=== PATIENT | male | born 1935 | race American Indian/Alaskan Native ===

== ENCOUNTER 2018-05-17 18:26 | Emergency (ER) | payer MEDICARE ==
--- NOTE | 2018-05-17 19:45 | Emergency Department Report ---
HPI - General Chief Complaint: Syncope Time Seen by Provider: 05/17/18 19:23 - HPI HPI: 82-year-old male presents to the emergency department via EMS from home after he passed out. Patient just finished eating something for dinner and went into the kitchen to get something to drink. His heard him drop his glass and found him on the ground with his eyes rolled back of his head. She says it took about 3-4 minutes before he was back at his normal mental status. Currently the patient is awake and alert, at his baseline, and he has no complaints. He denies any headache, vision change, chest pain, shortness of breath. He has a past medical history of hypertension, remote throat cancer and he does have some dementia. His primary care physician is through the [facility]. No recent travel or sick contacts at home. ED Past Medical Hx - Past Medical History Hx Hypertension: Yes Hx Dementia: Yes Additional medical history: throat cancer 2011 - Surgical History Past Surgical History?: No - Social History Smoking Status: Former Smoker Substance Use Type: None ED Review of Systems ROS: Stated complaint: SYNCOPE Other details as noted in HPI Comment: All other systems reviewed and negative Constitutional: denies: chills, fever Eyes: denies: eye pain, eye discharge, vision change ENT: denies: ear pain, throat pain Respiratory: denies: cough, shortness of breath, wheezing Cardiovascular: syncope. denies: chest pain Gastrointestinal: denies: abdominal pain, nausea, diarrhea Genitourinary: denies: urgency, dysuria Musculoskeletal: denies: back pain, joint swelling, arthralgia Skin: denies: rash, lesions Neurological: denies: headache, weakness, paresthesias Physical Exam - Physical Exam Vital Signs: Vital Signs 05/17/18 19:12 Temperature 98.6 F Pulse Rate 76 Respiratory 18 Rate Blood Pressure 172/82 Physical Exam: GENERAL: The patient is well-developed well-nourished. HENT: Normocephalic. Atraumatic. Patient has moist mucous membranes. EYES: Extraocular motions are intact. Pupils equal reactive to light bilaterally. No nystagmus. NECK: Supple. Trachea is midline. CHEST/LUNGS: Clear to auscultation. There is no respiratory distress noted. HEART/CARDIOVASCULAR: Regular. There is no tachycardia. There is no murmur. ABDOMEN: Abdomen is soft, nontender. Patient has normal bowel sounds. There is no abdominal distention. SKIN: Skin is warm and dry. NEURO: The patient is awake, alert and cooperative. The patient has no focal neurologic deficits. The patient has normal speech. Cranial nerves II through XII grossly intact. No pronator drift. No dysmetria. MUSCULOSKELETAL: There is no tenderness or deformity. There is no limitation range of motion. There is no evidence of acute injury. Muscle strength 5 out of 5 her upper and lower extremity as bilaterally. ED Course Vital Signs 05/17/18 19:12 Temperature 98.6 F Pulse Rate 76 Respiratory 18 Rate Blood Pressure 172/82 ED Medical Decision Making - Lab Data Result diagrams: 05/17/18 19:32 05/17/18 19:32 - EKG Data -: EKG Interpreted by Fl EKG shows normal: sinus rhythm, axis, intervals, QRS complexes, ST-T waves Rate: normal - EKG Data When compared to previous EKG there are: previous EKG unavailable Interpretation: normal EKG - Radiology Data Radiology results: report reviewed EXAM: CT HEAD/BRAIN WO CON HISTORY: Syncope TECHNIQUE: 2.5 millimeter axial images from the skullbase to the vertex. Comparison: None FINDINGS: Low attenuation in the subcortical and deep white matter of the cerebral hemispheres bilaterally is nonspecific in appearance but most likely represent areas of chronic post ischemic demyelination/small vessel disease. There is no definite evidence of an acute intracranial process and no evidence of acute intracranial hemorrhage or significant mass effect. There appears to be small extra-axial collection in the right frontal region (images 36 through 38, series 2). This is isodense to cortex. This may represent a meningioma, subacute subdural hematoma or artifact. This is not results in significant mass effect on the underlying brain. Ventricular size is concordant with the degree of atrophy. The visualized portions of the orbits, paranasal and mastoid sinuses are unremarkable. There is no evidence of fracture. There is a left parietal occipital scalp hematoma. IMPRESSION: 1. No evidence of an acute intracranial process, acute intracranial hemorrhage or mass effect. 2. Appearance of a small extra-axial collection in the right frontal region that is isodense to cortex and may represent a meningioma, subacute subdural hematoma or artifact. Comparison with previous imaging studies would be helpful. If further imaging is required, MRI may be helpful. 3. White matter changes that most likely represent areas of chronic post ischemic demyelination/small vessel disease. 4. Left parietal occipital scalp hematoma. 5. No evidence of fracture. Transcribed By: ED Dictated By: IRIS MAYFIELD MD Electronically Authenticated By: IRIS MAYFIELD MD Signed Date/Time: 05/17/186 - Medical Decision Making 82-year-old male presented after he had a syncopal episode and hit his head in the kitchen. Since being in the emergency department he is awake, alert, cooperative, in no acute distress and has no complaints. CT of the head without contrast did not show any bleed, shift, mass, ischemia or any other significant acute process. Labs were unremarkable and did not show any etiology of his presenting symptoms. EKG was normal without ST elevation [place], ischemia or dysrhythmia. Patient was reevaluated multiple times with multiple hours and there has been no further episodes of dizziness, lightheadedness or passing out. Prior to discharge the patient was ambulatory around the length of the emergency department and did so without any instability. The patient says he is feeling well and asking for discharge home. He has good follow-up with primary care and has been instructed to see them in the next few days, but return to the emergency department with any further episodes of passing out or with any acute distress. With the patient is understand and agree to the plan and all questions have been answered. - Differential Diagnosis vasovagal, orthostatic hypotension, dysrhythmia, TIA Critical Care Time: No Critical care attestation.: If time is entered above; I have spent that time in minutes in the direct care of this critically ill patient, excluding procedure time. ED Disposition Clinical Impression: Syncope Qualifiers: Syncope type: unspecified Qualified Code(s): R55 - Syncope and collapse Hypertension Qualifiers: Hypertension type: essential hypertension Qualified Code(s): I10 - Essential ( primary) hypertension Disposition: DC-01 TO HOME OR SELFCARE Is pt being admited?: No Condition: Stable Instructions: Syncope (ED), Hypertension (ED) Additional Instructions: Please follow-up with your primary care physician as soon as possible. Return to the emergency department immediately with any further episodes of passing out , any change in mental status, development of any neurological deficits, or with any acute distress. Continue taking your blood pressure medications. Keep a blood pressure log. Referrals: PRIMARY CARE, [Primary Care Provider] - [facility] Time of Disposition: 22:55
[2018-05-17 19:46] LABS: Basophils % (Auto) 0.6 % (0.0-1.8); Eosinophils # (Auto) 0.1 K/mm3 (0.0-0.4); Eosinophils % (Auto) 2.6 % (0.0-4.3); Hematocrit 45.3 % (35.5-45.6); Hemoglobin 14.4 gm/dl (11.8-15.2); Lymphocytes # (Auto) 1.2 K/mm3 (1.2-5.4); Lymphocytes % (Auto) 20.2 % (13.4-35.0); Mean Corpuscular HGB Conc 32 % (32-34); Mean Corpuscular Hemoglobin 27 pg (28-32); Mean Corpuscular Volume 84 fl (84-94); Monocytes # (Auto) 0.4 K/mm3 (0.0-0.8); Monocytes % (Auto) 6.7 % (0.0-7.3); Platelet Count 139 K/mm3 (140-440); Red Blood Count 5.42 M/mm3 (3.65-5.03); Red Cell Distribution Width 15.4 % (13.2-15.2)
[2018-05-17 19:56] LABS: INR 1.02 (0.87-1.13)
[2018-05-17 19:57] LABS: Partial Thromboplastin Time 27.9 Sec. (24.2-36.6)
[2018-05-17 20:02] LABS: Albumin 4.3 g/dL (3.9-5); BUN/Creatinine Ratio 11; Blood Urea Nitrogen 16 mg/dL (9-20); Hemolysis Index 136
[2018-05-17 20:10] LABS: Alanine Aminotransferase 12 units/L (7-56)
--- NOTE | 2018-05-17 22:27 | Cat Scan Report ---
FINAL REPORT EXAM: CT HEAD/BRAIN WO CON HISTORY: Syncope TECHNIQUE: 2.5 millimeter axial images from the skullbase to the vertex. Comparison: None FINDINGS: Low attenuation in the subcortical and deep white matter of the cerebral hemispheres bilaterally is nonspecific in appearance but most likely represent areas of chronic post ischemic demyelination/small vessel disease. There is no definite evidence of an acute intracranial process and no evidence of acute intracranial hemorrhage or significant mass effect. There appears to be small extra-axial collection in the right frontal region (images 36 through 38, series 2). This is isodense to cortex. This may represent a meningioma, subacute subdural hematoma or artifact. This is not results in significant mass effect on the underlying brain. Ventricular size is concordant with the degree of atrophy. The visualized portions of the orbits, paranasal and mastoid sinuses are unremarkable. There is no evidence of fracture. There is a left parietal occipital scalp hematoma. IMPRESSION: 1. No evidence of an acute intracranial process, acute intracranial hemorrhage or mass effect. 2. Appearance of a small extra-axial collection in the right frontal region that is isodense to cortex and may represent a meningioma, subacute subdural hematoma or artifact. Comparison with previous imaging studies would be helpful. If further imaging is required, MRI may be helpful. 3. White matter changes that most likely represent areas of chronic post ischemic demyelination/small vessel disease. 4. Left parietal occipital scalp hematoma. 5. No evidence of fracture.
[2018-05-17 23:28] VITALS: BP 174/82
== END 2018-05-17 23:26 | disposition home or self-care (01) ==
LOC: ED 18:26
DX: I10 Essential (primary) hypertension (principal); R55 Syncope and collapse; F03.90 Unspecified dementia, unspecified severity, without behavioral disturbance, psychotic disturbance, mood disturbance, and anxiety; Z87.891 Personal history of nicotine dependence
CPT/HCPCS: 36415; 70450; 80053; 84484; 85025; 85610; 85730; 93005; 93010; 99284